=== PATIENT | female | born 1945 | race Caucasian/White ===

== ENCOUNTER 2025-02-04 09:28 | Day surgery (SDC) | payer MEDICARE, OTHER, SELFPAY ==
--- OUTSIDE RECORDS SUMMARY | 2025-01-29 13:08 | XMS_ITS | Clinical Summary ---
Author Organization [address] [facility] Building Address [address] [facility] [place], [place] [address] Phone Care Team Providers Care Carrot Tier Name Role Phone Lynette Duff MD Primary Care Provider [phone] Allergies Active Allergy Reactions Criticality Noted Date Comments Cephalexin Medium 03/27/2019 Other Reaction(s): Myalgia and Joint Pain Severe Leg pain Ciprofloxacin 02/22/2019 Experienced chest pain, also worried because she has aortic dilatation and increased risk of aneurysm rupture on flouroquinolone Droperidol Hives 04/28/2005 Flu Virus Vaccine Tv 2015-16 (18 Yr And Up),Recomb Anaphylaxis,Whe[place] ing High 11/25/2022 Pt is allergic to ANY FLU VACCINE . Furosemide 06/30/2018 Per pt was told when in hospital That she should not take lasix because it dries out her kidneys Hydralazine Other 08/07/2024 Ibuprofen Swelling 08/19/2014 Loratadine 07/11/2019 Caused increased heart rate Naproxen Hives 04/28/2005 Penicillin G Benzathine Hives 04/28/2005 Shellfish Derived Swelling 03/21/2007 Shrimp 10/26/2018 Pt was in ER Sulfacetamide Sodium Hives 04/28/2005 Tramadol Hcl Hives 04/28/2005 Medications calcium carbonate-vitamin D 600 mg-10 mcg (400 unit) per tablet Take 1 tablet by mouth 3 times daily. Active cetirizine (ZyrTEC) 10 mg tablet Take 1 tablet (10 mg total) by mouth 1 (one) time each day. 3 Active EpiPen 2-Flip 0.3 mg/0.3 mL injection Inject 0.3 mL (0.3 mg total) into the thigh if needed for anaphylaxis. 4 Active melatonin 5 mg capsule Take by mouth. prn Active meclizine (ANTIVERT) 25 mg tablet Take 25 mg by mouth 3 times daily. Active medical supply, miscellaneous (MISCELLANEOUS MEDICAL SUPPLY [facility]) CPAP Inhale into the lungs. Active ketotifen (ZADITOR) 0.025 % ophthalmic solution 1 Drop 3 times daily. Active fluticasone-salme terol (Wixela Inhub) 250-50 mcg/dose diskus inhaler Inhale 1 puff by mouth 2 (two) times a day. 3 each 3 5 05/18/19 26 Active albuterol HFA (PROAIR HFA ; PROVENTIL HFA ; VENTOLIN HFA) 90 mcg/actuation inhaler Inhale 2 puffs by mouth every 4 (four) hours if needed for wheezing. 6.7 g 5 Active famotidine (PEPCID) 20 mg tablet Take 1 tablet (20 mg total) by mouth 2 (two) times a day. 180 tablet 1 5 Active KLOR-CON 20 mEq CR tablet TAKE 1 TABLET DAILY 90 tablet 1 5 Active DILT-XR 240 mg 24 hr capsule TAKE 1 CAPSULE DAILY 90 capsule 1 5 Active gabapentin (NEURONTIN) 100 mg capsule Take 1 capsule (100 mg total) by mouth 3 (three) times a day. 270 capsule 5 Active olmesartan (BENICAR) 40 mg tablet Take 1 tablet (40 mg total) by mouth 1 (one) time each day. 90 each 5 Active oxyCODONE-acetami nophen (PERCOCET) 5-325 mg per tablet Take 1 tablet by mouth 1 (one) time each day if needed for severe pain for up to 28 days. Max Daily Amount: 1 tablet 28 tablet 5 02/09/20 25 Active tirzepatide, weight loss, (Zepbound) 7.5 mg/0.5 mL injectionIndicati ons:Class 3 severe obesity due to excess calories with serious comorbidity and body mass index (BMI) of 40.0 to 44.9 in adult ([facility] V24, [facility] V28) Inject 0.5 mL (7.5 mg total) under the skin every 7 (seven) days. 2 mL 2 5 04/14/19 26 Active levothyroxine (SYNTHROID, LEVOTHROID) 100 mcg tablet Take 1 tab daily From Tuesday to Tuesday, 1.5 tabs on Tuesday But on Sundays take 2 tabs 108 tablet 1 5 Active sertraline (ZOLOFT) 50 mg tablet Take 1 tablet (50 mg total) by mouth 1 (one) time each day. 90 tablet 1 5 Active fluticasone propionate (FLONASE) 50 mcg/actuation nasal spray SPRAY 2 SPRAYS BY NASAL ROUTE DAILY. 16 g 3 5 Active fluticasone propionate (FLONASE) 50 mcg/actuation nasal spray SPRAY 2 SPRAYS BY NASAL ROUTE DAILY. 01/25/20 25 Discontin ued(Reord er) sertraline (ZOLOFT) 50 mg tablet Take 1 tablet (50 mg total) by mouth 1 (one) time each day. 90 tablet 1 5 01/25/20 25 Discontin ued(Reord er) levothyroxine (SYNTHROID, LEVOTHROID) 100 mcg tablet Take 1 tab daily From Tuesday to Tuesday, 1.5 tabs on Tuesday But on Sundays take 2 tabs 108 tablet 1 5 01/17/20 25 Discontin ued(Reord er) tirzepatide, weight loss, (Zepbound) 7.5 mg/0.5 mL injection Inject 0.5 mL (7.5 mg total) under the skin every 7 (seven) days. 2 mL 5 01/15/20 25 Discontin ued(Reord er) oxyCODONE-acetami nophen (PERCOCET) 5-325 mg per tablet Take 1 tablet by mouth 1 (one) time each day if needed for severe pain for up to 28 days. Max Daily Amount: 1 tablet 28 tablet 5 01/11/20 25 Discontin ued(Reord er) Active Problems Problem Noted Date Diagnosed Date Hypokalemia 08/18/2024 Hyponatremia 08/17/2024 Assessment & Plan (09/03/2024 11:27 AM EDT): We will recheck her electrolyte levels. Orders: Basic metabolic panel; Future Anxiety 11/05/2020 Ascending aorta dilatation ([facility] V24) 021 Assessment & Plan (06/22/2024 6:50 PM EDT): Up-to-date with echocardiogram. Will continue surveillance echocardiogram yearly. Assessment & Plan (02/18/2024 9:30 AM EST): She is up-to-date with her echocardiogram. Ascending aortic dilatation stable. PLMD (periodic limb movement disorder) 9 Obstructive sleep apnea 07/24/2018 Overview (01/16/2024): [facility] Polysomnogram: Date 07/23/2018; Wt 255#; BMI 47; SE 42%; SM 50%; REM 25%; RDI 56 (AHI 52), REM (RDI 58 - AHI 58), Central apneas 0; Obstructive apneas 32; Mixed apneas 0; hypopneas 107; RERAs 13; average oxygen saturation 91% (lowest 70% - with saturations <88% for 5% or more of study); PLMs 230. - Obstructive Sleep Apnea - Severe; mostly hypopneas with obstructive apneas; with sleep related hypoventilation and PLMD by 2019 polysomnogram. - 07/23/2018 Prestudy ESS 4; 1/ RLS symptoms. CKD (chronic kidney disease) stage 3, GFR 30-59 ml/min ([facility] V24, [facility] V28) 10/07/2017 Assessment & Plan (06/22/2024 6:50 PM EDT): Avoid NSAIDs. She has an upcoming appointment with nephrology. Assessment & Plan (02/18/2024 9:30 AM EST): COPD (chronic obstructive pu lmonary disease) ([facility] V24, [facility] V28) 10/07/2017 Assessment & Plan (02/18/2024 9:30 AM EST): Advised avoid NSAIDs. Gently increase water intake. SVT (supraventricular tachycardia) ([facility] V24) 10/07/2017 Overview (01/16/2024): 01/18/19: continue on diltiazem. Needs JENA controlled. F/u 6 months. 03/05/19: received updated holter - no changes. Cardiology (11/03/17): Patient was recently hospitalized for pneumonia. Her telemetry monitoring showed SVT during the time. It resolved with low-dose diltiazem. 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 Do not think she has primary hypertension. Does not need diuretic at this time. Posterior subcapsular age-related cataract, left eye 03/16/2017 Knee osteoarthritis 08/22/2013 Lumbosacral spondylosis without myelopathy 08/22 Migraine, unspecified, witho ut mention of intractable migraine without mention of status migrainosus 08/10/2012 Overview (01/16/2024): Neuro(01/12/17): stop topiramate, limit caffiene, avoid daily painkillers and avoid triggers Lumbar spinal stenosis 11/17/2011 Overview (01/16/2024): Neurosurg(12/09/16): seen by Dr Marty Stockton, discussed treamtent options. Patient wants to this think about her options. [facility] 11/16 Assessment & Plan (06/22/2024 6:50 PM EDT): I adjusted her gabapentin dose to 100 mg in the morning and at bedtime and 200 mg in the afternoon. Morbid obesity with BMI of 5 0.0-59.9, adult ([facility] V24, [facility] V28) 01/14/2011 Asteroid hyalosis 08/25/2009 Nuclear sclerosis 08/25/2009 BPPV (benign paroxysmal positional vertigo) 09/04 Ocular hypertension 08/26/2008 Hypersomnia with sleep apnea 03/15/2006 Overview (01/16/2024): Much improved with weight loss IMO update Hypertension 07/29/2005 Assessment & Plan (09/03/2024 11:27 AM EDT): Blood pressure elevated but there could be a component of whitecoat hypertension. Advised her to keep a blood pressure log twice a day and she will call me let me know in 1 week's time. If truly elevated, I will consider adding spironolactone but Will need to discontinue her potassium supplement if she is started on spironolactone. She will continue her regimen of diltiazem and olmesartan for now. Assessment & Plan (06/22/2024 6:50 PM EDT): Blood pressure still elevated. I will start her on hydralazine 25 mg twice a day. Continue her current regimen of diltiazem and losartan. Follow-up in 4 weeks for blood pressure recheck. Orders: Basic metabolic panel; Future Assessment & Plan (02/18/2024 9:30 AM EST): Blood pressure is elevated today. However, patient states that blood pressure is much better controlled when she takes her diltiazem at night and losartan during the day. Will switch her regimen to diltiazem at night and losartan during the day. She will follow low-sodium diet. She will keep a blood pressure log. Follow-up in 1 week's time for blood pressure follow-up. Hypothyroidism 07/29/2005 Assessment & Plan (06/22/2024 6:50 PM EDT): Continue current raynaud levothyroxine. Assessment & Plan (02/18/2024 9:30 AM EST): Continue current regimen of levothyroxine. Encounters Date Type Department Care Team Description 01/15/2025 3:20 PM EST Lab Draw Station - [address] Hyponatremia; Abdominal pain, unspecified abdominal location; Hypothyroidism, unspecified type 01/15/2025 2:30 PM EST Office Visit Internal Medicine - [address] [phone] Lynette Duff MD Hypertension, unspecified type (Primary Dx); Chronic obstructive pulmonary disease, unspecified COPD type ([facility] V24, [facility] V28); Class 3 severe obesity due to excess calories with serious comorbidity and body mass index (BMI) of 45.0 to 49.9 in adult ([facility] V24, [facility] V28); Ascending aorta dilatation ([facility] V24); Stage 3 chronic kidney disease, unspecified whether stage 3a or 3b CKD ([facility] V24, [facility] V28); Hypothyroidism, unspecified type; Hyponatremia; Obstructive sleep apnea; Ocular hypertension, unspecified laterality; Anxiety 01/15/2025 Results Follow-Up Internal Medicine - [address] [phone] Lynette Duff MD 01/14/2025 Telephone Bariatric Surgery [facility] [address] [phone] Konstantin Bojorquez MD 01/09/2025 Telephone Internal Medicine - [address] [phone] Lynette Duff MD 12/18/2024 Billing Patient Not Present Internal Medicine - [address] [phone] Kelsi Weaver NP Unilateral primary osteoarthritis, left knee (Primary Dx); Spinal stenosis, lumbosacral region; Difficulty in walking, not elsewhere classified 12/13/2024 Telephone Bariatric Surgery [facility] [address] [phone] Konstantin Bojorquez MD 12/12/2024 4:55 PM EDT - 12/12/2024 11:59 PM EDT Hospital Encounter Radiology Department - [address] [phone] Encounter for screening mammogram for malignant neoplasm of breast Discharge Disposition: Home or Self Care 12/10/2024 Telephone Internal Medicine - [facility] [address] [place] [phone] Lynette Duff MD 11/14/2024 Telephone Bariatric Surgery - [place] [address] [phone] Konstantin Bojorquez MD 11/01/2024 Telephone Bariatric Surgery - [place] [address] [phone] Konstantin Bojorquez MD 10/30/2024 [facility] [place] [phone] Denzel Tena MD from Last 3 Months Immunizations Immunization Administration Dates Next Due Influenza trivalent, 0.5mL ( Fluad) 65yo and older 11/25/2022,03/17/2022,12/19/2020,12/03,12/13/2018,12/07/2017 Influenza trivalent, 0.5mL, preservative free (Fluarix; FluLaval; Fluzone) ages 6mo and older (Afluria) 3 years and older 01/03/2013,01/26/2008,01/17/2007,12/17 Moderna SARS-CoV-2 COVID-19, mRNA, LNP-S, preservative free 08/06/2021,05/27/2020 Pneumococcal conjugate 13 va lent (Prevnar 13, PCV13) 2mo and older 12/19/2014 Pneumococcal polysaccharide 23 valent (Pneumovax 23) 2yo and older 06/25/2016,12/05/2009 Td Tetanus diptheria (Tdvax) 7yo and older 10/28/2017 Tdap Tetanus diptheria acell ular pertussis (Boostrix; Adacel) 7yo and older 03/21/2007 Zoster Live 08/09/2011 Surgical History Surgery Date Site/Laterality Comments HYSTERECTOMY 1971 PROCEDURE: HISTORICAL HYSTERECTOMY; COMMENT: IRASEMA/BSO; Endometriosis CHOLECYSTECTOMY PROCEDURE: HISTORICAL CHOLECYSTECTOMY OTHER SURGICAL HISTORY PROCEDURE: UT CV STRS TST XERS&/OR RX CONT ECG W/SI&R; COMMENT: neg OTHER SURGICAL HISTORY 2004 PROCEDURE: UT ECHO TRANSTHORAC R-T 2D W/WO M-MODE REC COMP; COMMENT: [place] dys COLONOSCOPY 09/12/14 PROCEDURE: HISTORICAL COLONOSCOPY; COMMENT: diverticulosis, polyp x 1 BREAST BIOPSY 2009ish Left PROCEDURE: BX BREAST; PERC NEEDLE CORE W/IMAG GUID; COMMENT: left negative CHOLECYSTECTOMY PROCEDURE: UT LAPAROSCOPY SURG CHOLECYSTECTOMY Medical History Medical History Date Comments Headache(784.0) 07/29/2005 DX:Headache(784. 0) Unspecified asthma(493.90) 07/29/2005 DX:Un specified asthma(493.90) Heart disease, unspecified DX:He art disease, unspecified Unspecified essential hypertension DX:Unspecified essential hypertension Unspecified hypothyroidism 07/29/2005 DX:Un specified hypothyroidism Macular degeneration (senile ) of retina, unspecified DX:Macular degeneration (sen ile) of retina, unspecified; COMMENT: per Dr. He Obesity 01/14/2011 DX:Obesity Lumbar spinal stenosis 11/17/2011 DX:Lumbar spinal stenosis CKD (chronic kidney disease) 10/07/2017 DX: CKD (chronic kidney disease) SVT (supraventricular tachyc ardia) ([facility] V24) 10/07/2017 DX:SVT (supraventricular tac hycardia) ([facility]) COPD (chronic obstructive pu lmonary disease) ([facility] V24, [facility] V28) 10/07/2017 DX:COPD (chronic o bstructive pulmonary disease) ([facility]) Ascending aorta dilatation ( [facility] V24) 11/05/2020 DX:Ascending aorta dilatatio n ([facility]) Glaucoma Family History Medical History Relation Name Comments Coronary artery disease Brother 1 ray Diabetes Brother 1 ray Hypertension Brother 1 ray Asthma Brother 2 roxann Hypertension Brother 2 roxann Stomach cancer Brother 2 roxann Asthma Brother 3 Andre Diabetes Brother 3 Andre Hypertension Brother 3 Andre Other: Other Brother 3 Andre excema, bilater al foot amputation No Known Problems Daughter Asthma Father Heart attack Father Blindness Mother Cataracts Mother Diabetes Mother Glaucoma Mother Hypertension Mother Macular degeneration Mother Other: Other Mother enlarged heart Thyroid disease [address] Sister 2 keya Other: opther Sister 2 keay psoriasis Heart failure Sister 3 adilia Hypertension Sister 3 adilia Mental illness Sister 3 adilia Asthma Sister 4 Nisreen Asthma Sister 5 wilmar Ovarian cancer Sister 5 wilmar Asthma Sister 6 Elizabeth Hypertension Sister 6 Elizabeth No Known Problems Son Breast cancer Neg Hx Colon cancer Neg Hx Strabismus Neg Hx Relation Name Status Comments Brother 1 ray Brother 2 roxann Brother 3 Andre Daughter adopted charly r Father Mother Sister [address] Alive Sister 2 keya Alive Sister 3 adilia Alive Sister 4 [place] Alive Sister 5 wilmar Alive Sister 6 Elizabeth Alive Son adopted son Social History Tobacco Use Types Packs/Day Years Used Date Smoking Tobacco: Former Cigarettes 1 Q uit: 03/07/1999 Smokeless Tobacco: Never Tobacco Cessation:Counseling Given: Not Answered Alcohol Use Standard Drinks/Week Comments No 0 (1 standard drink = 0.6 oz pur e alcohol) Housing Instability Answer Date Recorde d Are you worried that in the next 2 months you may not have stable housing? No 08/20/2024 Food Access & Nutrition Answer Date Rec orded Do you have access to a vari ety of food including fruits and vegetables? Yes 08/18/2024 Access to Healthcare Answer Date Record ed Within the last 3 months, ho w many times did you visit the emergency department for your medical care? 2 08/18/2024 Health Literacy Answer Date Recorded How often do you need to hav e someone help you when you read instructions, pamphlets, or other written material from your doctor or pharmacy? Never 08/18/2024 Caregiver: How often do you need to have someone help you when you read instructions, pamphlets, or other written material from your doctor or pharmacy? Not on file 08/18/2024 Financial Risk Answer Date Recorded How hard is it for you to pa y for the very basics like food, housing, medical care, and air conditioning / heating? Somewhat hard 08/20/2024 Transportation Answer Date Recorded Has the lack of transportati on kept you from meetings, work, or from getting things needed for daily living? No Has the lack of transportati on kept you from medical appointments or from getting medications? No 08/20/2024 Social Isolation Answer Date Recorded How often do you feel lonely or isolated from th ose around you? Never 08/18/2024 Food Risk Answer Date Recorded Within the past 12 months we worried whether our food would run out before we got money to buy more. Never true 08/20/2024 Within the past 12 months th e food we bought just didn't last and we didn't have money to get more. Never true 08/20/2024 Dependent Care Answer Date Recorded Do you need help finding or paying for care for your loved ones. For example, childcare aide or elderly care for an older adult? No 08/18/2024 Education Answer Date Recorded Do you think completing more education or training, like finishing a GED, going to college, or learning a trade, would be helpful for you? No 08/18/2024 Employment and Income Answer Date Recor ded During the last four weeks, have you been actively looking for work? No 08/18/2024 Living Situation Answer Date Recorded What is your living situation? Unrecognized valu e 08/20/2024 Interpersonal Safety Answer Date Record ed Physical Abuse Unrecognized value 08/18/2024 Verbal Abuse Unrecognized value 08/18/2024 Comments No Sex and Gender Information Value Date Recorded Sex Assigned at Not on file Legal Sex Female 5:54 AM EST Gender Identity Not on file Sexual Orientation Not on file Obstetrics History Para Term AB IAB SAB Ectopic Multiple Livin g Live Births 0 0 0 Last Filed Vital Signs Vital Sign Reading Time Taken Comments Blood Pressure 136/82 01/15/2025 2:32 PM EST Pulse 74 01/15/2025 2:32 PM EST Temperature 36.2 C (97.1 F) 2024 10:58 AM EDT Respiratory Rate 18 08/23/2024 9:36 AM EDT Oxygen Saturation 97% 08/23/2024 9:36 AM EDT Inhaled Oxygen Concentration - - Weight 108 kg (238 lb 12.8 oz) 01/15/2025 2:32 P M EST Height 165.1 cm (5' 5 ) 01/15/2025 2:32 PM EST Body Mass Index 39.74 01/15/2025 2:32 PM EST Plan of Treatment Upcoming Encounters Date Type Department Care Team (Late st Contact Info) Description 04/04/2025 1:30 PM EST Office Visit Bariatric Surgery - [place] [facility] [address] [place] [phone] Konstantin Bojorquez MD [address] [place] [phone] 04/18/2025 3:45 PM EST Office Visit Internal Medicine - [address] [phone] Kelsi Weaver, JESSY [address] [place], [place] [phone] 05/07/2025 4:00 PM EST Office Visit Nephrology - [address] [phone] Rob Nieves MD [address] [facility] [address] [place] [phone] 05/17/2025 3:45 PM EDT Office Visit Pulmonology - [place] [facility] [address] [place] [phone] Sofia Clemente MD [address] [place] [phone] Health Maintenance Due Date Last Done Comments Zoster Vaccines (1 of 2) 10/04/2011 08/09/2011 RSV Immunization Adult Patients (1 - 1-dose 75+ series) 2020 Osteoporosis Screening (Bone Density Screening) 02/13/2022 COVID-19 Vaccine ( season) 2024 08/06/2021, 05/27/2020, 04/29/2020 Influenza Vaccine (#1) 2024 , 03/17/2022, 12/19/2020, Additional history exists Medicare Annual Wellness Visit 02/16/2025 02/17/2024 Falls Risk Assessment 08/18/2025 08/18/2024 Social Influencers of Health Screening 08/20/2025 08/20/2024 Hypertension/CHF/CAD Annual BMP Blood Test 09/25/2025 09/25/2024, 09/03/2024, 08/23/2024, Additional history exists DTaP,Tdap,and Td Vaccines (3 - Td or Tdap) 10/29/2027 10/28/2017, 03/21/2007 Cholesterol Screening (Lipid Panel) 10/04/2028 10/05/2023, 10/05/2023 Hepatitis C Screening Completed 07/14/1998 Pneumococcal Vaccine: 50+ Years Completed 06/25/2016, 12/19/2014, 12/05/2009 Depression Screening Completed 01/14/2025 HIB Vaccines Aged Out No longer eligi ble based on patient's age to complete this topic HPV Vaccines Aged Out No longer eligi ble based on patient's age to complete this topic Hepatitis A Vaccines Aged Out No long er eligible based on patient's age to complete this topic Hepatitis B Vaccines Aged Out No long er eligible based on patient's age to complete this topic IPV Vaccines Aged Out No longer eligi ble based on patient's age to complete this topic MMR Vaccines Aged Out No longer eligi ble based on patient's age to complete this topic Meningococcal ACWY Vaccine Aged Out N o longer eligible based on patient's age to complete this topic Meningococcal B Vaccine Aged Out No l onger eligible based on patient's age to complete this topic RSV Immunization Patients Under 20 months Aged Out No longer eligible based on patient's age to complete this topic Varicella Vaccines Aged Out No longer eligible based on patient's age to complete this topic Procedures Procedure Name Priority Date/Time Associated Diagnosis Comments THYROID STIMULATING HORMONE WITH REFLEX TO FREE T4 AND FREE T3 Routine 01/15/2025 3:24 PM EST Hypothyroidism, unspecified type LIPASE Routine 01/15/2025 3:24 PM EST Abdominal pain, unspecified abdominal location MAGNESIUM Routine 01/15/2025 3:24 PM EST Hyponatremia MG MAMMO DIGITAL SCREENING W CANDELARIO BILAT Routine 12/12/2024 5:14 PM EDT Encounter for screening mammogram for malignant neoplasm of breast BASIC METABOLIC PANEL Routine 09/25/2024 12:49 PM EDT HAM (acute kidney injury) (CMS/HCC V24) LIPID PANEL Routine 10/05/2023 HEPATITIS C SCREENING Routine 07/14/1998 from Last 3 Months or Most Recently Relevant to Health Maintenance Results * Thyroid stimulating hormone with reflex to free t4 and free t3 (01/15/2025 3:24 PM EST) TSH 3.86 0.40 - 4.00 mcIU/mL LAB CHEMISTRY METHOD 01/15/2025 7:06 PM EST [facility] Blood Venous blood specimen / Unknown Venipuncture / Unknown 01/15/2025 3:24 PM EST 01/15/2025 3:24 PM EST us Lynette Duff MD LAB BLOOD ORDERABLES Final Res ult Performing Organization Address City/[facility]/ZIP Co de Phone Number [facility] [address] [place] [address], [place] [phone] * Magnesium (01/15/2025 3:24 PM EST) Pathologist [facility] Magnesium 2.0 1.9 - 2.6 mg/dL LAB CHEMISTRY METHOD 01/15/2025 6:36 PM EST [facility] Blood Venous blood specimen / Unknown Venipuncture / Unknown 01/15/2025 3:24 PM EST 01/15/2025 3:24 PM EST us Lynette Duff MD LAB BLOOD ORDERABLES Final Res ult [facility] [address] [place] [address], [place] [phone] * Lipase (01/15/2025 3:24 PM EST) Lipase 29 13 - 75 unit/L LAB CHEMISTRY METHOD 01/15/2025 6:36 PM EST [facility] Blood Venous blood specimen / Unknown Venipuncture / Unknown 01/15/2025 3:24 PM EST 01/15/2025 3:24 PM EST us Konstantin Bojorquez MD LAB BLOOD ORDERABLES Final R esult [facility] [address] [place] [address], [place] [phone] * MG Mammo Digital Screening w Candelario bilat (12/12/2024 5:14 PM EDT) Anatomical Region Laterality Modality Breast Bilateral Mammography 12/13/2024 5:53 PM EDT Impressions 12/13/2024 5:55 PM EDT No mammographic evidence of malignancy. BREAST DENSITY: B - There are scattered areas of fibroglandular density. BI-RADS CATEGORY: 1 - NEGATIVE RECOMMENDATION: Screening bilateral mammogram is recommended in 1 year. MAMMO LOCATION: [facility], [address] [place] [address], [id number], . -------- FINAL REPORT -------- Dictated By: Tanya Nicolas Dictated Date: 12/13/2024 17:53 ET Assigned Physician: Tanya Nicolas Reviewed and Electronically Signed By: Tanya Nicolas Signed Date: 12/13/2024 17:55 ET Workstation ID: [id number] Transcribed By: Self Edit Transcribed Date: 12/13/2024 17:53 ET Narrative 12/13/2024 5:55 PM EDT EXAM: Screening Mammogram CLINICAL: 79 years old, Female, routine annual exam. History of a benign left core biopsy in 2011. COMPARISON: 02/15/2023 and 07/10/2020 TECHNIQUE: Bilateral MLO and CC views were obtained digitally with 3-D mammogram (digital breast tomosynthesis). Computer- aided detection was utilized in evaluation of this exam (CAD). FINDINGS: No new suspicious mass, architectural distortion, or suspicious calcifications. Biopsy clip again noted in the upper outer left breast. Procedure Note Tanya Nicolas MD - 12/13/2024 EXAM: Screening Mammogram CLINICAL: 79 years old, Female, routine annual exam. History of a benignleft core biopsy in 2012. COMPARISON: 02/15/2023 and 07/10/2020 TECHNIQUE: Bilateral MLO and CCviews were obtained digitally with 3-D mammogram (digital breasttomosynthesis). Computer- aided detection was utilized in evaluation ofthis exam (CAD). FINDINGS: No new suspicious mass, architectural distortion, or suspiciouscalcifications. Biopsy clip again noted in the upper outer left breast. IMPRESSION: No mammographic evidence of malignancy. BREAST DENSITY: B - There are scattered areas of fibroglandular density. BI-RADS CATEGORY: 1 - NEGATIVE RECOMMENDATION: Screening bilateral mammogram is recommended in 1 year. MAMMO LOCATION: [facility], [address] [place] [address], [id number], . -------- FINAL REPORT -------- Dictated By: Tanya Nicolas Dictated Date: 12/13/2024 17:53 ET Assigned Physician: Tanya Nicolas Reviewed and Electronically Signed By: Tanya Nicolas Signed Date: 12/13/2024 17:55 ET Workstation ID: [id number] Transcribed By: Self Edit Transcribed Date: 12/13/2024 17:53 ET us Denzel Tena MD IMG BI PROCEDURES Final R esult * (ABNORMAL) Basic metabolic panel (09/25/2024 12:49 PM EDT) Sodium 132(L) 133 - 145 mmol/L LAB CHEMISTRY METHOD 09/25/2024 5:20 PM EDT [facility] Potassium 4.7 3.5 - 5.5 mmol/L LAB CHEMISTRY METHOD 09/25/2024 5:20 PM EDT [facility] Chloride 97 96 - 110 mmol/L LAB CHEMISTRY METHOD 09/25/2024 5:20 PM [facility] CO2 29 21 - 32 mmol/L LAB CHEMISTRY METHOD 09/25/2024 5:20 PM [facility] Anion Gap 6 3 - 11 LAB CHEMISTRY METHOD 09/25/2024 5:20 PM [facility] Glucose 78 70 - 100 mg/dL LAB CHEMISTRY METHOD 09/25/2024 5:20 PM [facility] BUN 18 5 - 25 mg/dL LAB CHEMISTRY METHOD 09/25/2024 5:20 PM [facility] Creatinine 1.36(H) 0.50 - 1.10 mg/dL LAB CHEMISTRY METHOD 09/25/2024 5:20 PM [facility] eGFR 40(L) >=60 mL/min/1. 73m2 LAB CHEMISTRY METHOD 09/25/2024 5:20 PM [facility] Comment:Calculation based on the Chronic Kidney Disease Epidemiology Collaboration (CKD-EPI) equation refit without adjustment for race. BUN/Creatinine Ratio 13.2 LAB CHEMISTRY METHOD 09/25/2024 5:20 PM [facility] Calcium 9.0 8.5 - 10.5 mg/dL LAB CHEMISTRY METHOD 09/25/2024 5:20 PM [facility] Blood Venous blood specimen / Unknown Venipuncture / Unknown 09/25/2024 12:49 PM EDT 09/25/2024 12:49 PM EDT us Denzel Tena MD LAB BLOOD ORDERABLES Imani daniesl Result [facility] [address] [place] [address], * Lipid panel (10/05/2023) LDL/HDL Ratio 2 0 - 4 Triglycerides 109 0 - 150 mg/dL Cholesterol 198 0 - 200 mg/dL HDL 82 >=40 mg/dL LDL Cholesterol 95 0 - 100 mg/dL Blood Venous blood specimen / Unknown Historical Provider LAB BLOOD ORDERABLES Imani l Result * Hepatitis C Screening (07/14/1998) Hepatitis C Screening Abstracted Historical Provider HEALTH MAINTENANCE Final Result from Last 3 Months or Most Recently Relevant to Health Maintenance [place] Advance Directives Documents on File Type Date Recorded Patient Labor Delivery Specialist Expl anation Health Care Decision (hx) 09/15/2017 AD VILLALOBOS DIRECTIVE Health Care Decision (hx) 09/15/2017 AD VILLALOBOS DIRECTIVE Health Care Decision (hx) 09/15/2017 AD VILLALOBOS DIRECTIVE Health Care Decision (hx) 09/15/2017 AD VILLALOBOS DIRECTIVE Health Care Decision (hx) 09/15/2017 AD VILLALOBOS DIRECTIVE Health Care Decision (hx) 09/15/2017 AD VILLALOBOS DIRECTIVE Health Care Decision (hx) 09/15/2017 AD VILLALOBOS DIRECTIVE Health Care Decision (hx) 09/15/2017 AD VILLALOBOS DIRECTIVE Health Care Decision (hx) 09/15/2017 AD VILLALOBOS DIRECTIVE Health Care Decision (hx) 09/15/2017 AD VILLALOBOS DIRECTIVE Health Care Decision (hx) 09/15/2017 AD VILLALOBOS DIRECTIVE * Full Code - Default (Latest Code Status on File) Date Activated Date Inactivated Comments 08/17/2024 11:29 PM 08/18/2024 4:04 PM This is ord er is used when code status has not been discussed with the patient, or code status is otherwise unknown/unconfirmed To update the patient's code status, place a code status order. Do not modify or discontinue any currently active code status orders. Care Teams Carrot Tier Relationship Specialty Start Date End Date Lynette Duff MD [address] [place] [phone] PCP - General Internal Medicine 12/04/24
--- OUTSIDE RECORDS SUMMARY | 2025-01-29 13:08 | XMS_ITS | Encounter Summary ---
Author Organization [facility] Address [address] [place] [address] Care Team Providers Care Want Ad Receiver Name Role Phone Lynette Duff MD Primary Care Provider [phone] Reason for Visit * Reason Onset Date Comments Request For Order(s) 01/09/2025 [facility] caremar k Encounter Details Date Type Department Care Team (Late st Contact Info) Description 01/09/2025 Telephone Internal Medicine - [facility] [address] [place] [phone] Lynette Duff MD [address] [place], [place] Social History Tobacco Use Types Packs/Day Years Used Date Smoking Tobacco: Former Cigarettes 1 Q uit: 03/07/1999 Smokeless Tobacco: Never Alcohol Use Standard Drinks/Week Comments No 0 [...] Record ed Within the last 3 months, radha vaughan many times did you visit the emergency [...] care for your loved ones. For example, child adolescent psychiatrist or elderly care for an older adult? [...] on file Sexual Orientation Not on file documented as of this encounter Functional Status * Are you deaf or do you have serious difficulty hearing? Answer Date of Assessment Author No 08/23/2024 12:31 AM EDT Melanie Dill RN * Are you blind or do you have serious difficulty seeing, even when wearing glasses? Answer Date of Assessment Author No 08/23/2024 12:31 AM EDT Melanie Dill RN * Do you have serious difficulty walking or climbing stairs? Answer Date of Assessment Author No 08/23/2024 12:31 AM EDT Melanie Dill RN * Do you have serious difficulty dressing or bathing? Answer Date of Assessment Author No 08/23/2024 12:31 AM EDT Melanie Dill RN * Because of a physical, mental, or emotional condition, do you have serious difficulty doing errandsalone such as visiting the doctor? Answer Date of Assessment Author No 08/23/2024 12:31 AM EDMelanie Jo RN documented as of this encounter Mental Status * Because of a physical, mental, or emotional condition, do you have serious difficulty concentrating, remembering, or making decisions? (5 years old or older) Answer Entry Date Author No 08/23/2024 12:31 AM EDMelanie Jo RN documented in this encounter Progress Notes * Mary Beth Menendez - 01/09/2025 12:45 PM EST faxed order from [facility] Placed in nurse's bin documented in this encounter Plan of Treatment Upcoming Encounters Date Type Department Care Team (Late st Contact Info) Description 04/04/2025 1:30 PM EST Office Visit Bariatric Surgery - [place] [address] [place] [phone] Konstantin Bojorquez MD [address] [place] [phone] 04/18/2025 3:45 PM EST Office Visit Internal Medicine - [address] [phone] Kelsi Weaver NP [address] [place] [phone] 05/07/2025 4:00 PM EST Office Visit Nephrology - [facility] [address] [place], [place] [phone] Rob Nieves MD [address] [place] [address] 05/17/2025 3:45 PM EDT Office Visit Pulmonology - [place] [address] [place] [phone] Sofia Clemente MD [address] [place] [phone] documented as of this encounter Visit Diagnoses Not on filedocumented in this encounter Additional Health Concerns Assessment Noted Time PHQ-9 Depression Total Score: 1 06/16/19 25 9:24 PM EDT documented as of this encounter Care Teams Want Ad Receiver Relationship Specialty Start Date End Date Lynette Duff MD [address] [place] [address] PCP - General Internal Medicine 12/04/24 documented as of this encounter
--- OUTSIDE RECORDS SUMMARY | 2025-01-29 13:08 | XMS_ITS | Patient Health Record ---
Author Organization [facility] [employer] [facility] onal Services [facility] Address [address] [place] [phone] Care Team Providers Care Manager Library Name Role Phone VEDA LUGO Unavailable [phone] Denzel Tena Unavailable Unavailable Reason For Referral No Information Problems Problem Type SNOMED Code ICD Code Onset Dates Problem Status W/U Status Risk Notes Problem Chronic kidney disease stage 3A (disorder) (611999895) Chronic kidney disease, stage 3a (N18.31) Active confirmed Encounters Encounter Location Date Provider Diagnosis [facility] [employer] [facility] [address] [place] [phone] 02/14/2024 VEDA LUGO [employer] [facility] [address] [place] [phone] 07/11/2024 VEDA LUGO [employer] [facility] [address] [place] [phone] 10/24/2024 VEDA PARISH [employer] [facility] [address] [place] [phone] 12/31/2024 VEDA LUGO Plan Of Treatment No Information Insurance Providers Payer Name Payer Address Payer Phone Subscriber Number Group Number Insured Name Patient Relationship to Insured Coverage Start Date Coverage End Date [facility] Medicare Advantage [id number] [place] [address] [id number] CHILO LEIVA Self - patient is the insured
--- OUTSIDE RECORDS SUMMARY | 2025-01-29 13:08 | XMS_ITS ---
Author Name [facility] Organization Unknown Care Team Organization Name Specialty Phone Email Start Date End Da te [facility] Denzel Tena Primary Care 01/12/2022 10/24/2023
--- NOTE | 2025-01-29 13:18 | HO.ANESPROP2 ---
Documented by User: Maria Teresa Marroquin NP 01/29/25 13:39 HPI - Anesthesia Eval Consult details Narrative: 79 yr old female for bilateral L4 Lumbar Transforaminal MICKIE BMI 39/40 Chronic opioids H/O aortic aneurysm and is scheduled for an echocardiogram in 02/2025, echo from 11/2023 reviewed below. H/O SVT, following Dr. Albert Trevino, ?last visit 11/2023, on diltiazem JENA: using CPAP CKD stage 3, following with renal H/O hyponatremia while on diuretics Anesthesia Pre-Procedure Meds Is the patient on any of the following meds?: GLP1/DPP4 PMFSH Active Problems Active Problems: All Active Problems Lumbar radiculitis (Acute) Spinal stenosis, lumbar region with neurogenic claudication (Acute) Past Medical History Medical History Anemia Depression Sleep apnea COPD (chronic obstructive pulmonary disease) Asthma Hx of kidney disease History of low potassium HTN (hypertension) Lumbar radiculitis Spinal stenosis, lumbar region with neurogenic claudication Surgical History Surgical History Hx of cholecystectomy Hx of hysterectomy Social History Social History Patient Tobacco Use Status: Former Tobacco user Use of substances other than those prescribed or required for medical reasons: No Are you DNR?: No Advance Directives: No Advance Directives Information Provided: Yes Meds Allergies Allergy/AdvReac Type Severity Reaction Status Date / Time influenza virus vaccine tvs Allergy Intermediate Anaphylaxis Verified 01/29/25 13:47 (65 yr and up) (From Fluad (65yr+)(PF)) vaccine adjuvant emulsion Allergy Intermediate Anaphylaxis Verified 01/29/25 13:47 MF59C.1 (From Fluad (65yr+)(PF)) droperidol Allergy Unknown Hives Unverified 01/29/25 13:47 naproxen Allergy Unknown Hives Verified 01/29/25 13:47 penicillin G benzathine Allergy Unknown Hives Verified 01/29/25 13:47 shellfish derived (shellfish) Allergy Unknown Swelling Verified 01/29/25 13:47 sulfacetamide Allergy Unknown Hives Verified 01/29/25 13:47 tramadol Allergy Unknown Hives Verified 01/29/25 13:47 cephalexin (From Keflex) AdvReac Unknown Joint Pain Verified 01/29/25 13:47 ciprofloxacin AdvReac Unknown Chest Pain Unverified 01/29/25 13:47 furosemide AdvReac Unknown Unknown Unverified 01/29/25 13:47 hydralazine AdvReac Unknown Unknown Unverified 01/29/25 13:47 ibuprofen AdvReac Unknown Swelling Verified 01/29/25 13:47 loratadine AdvReac Unknown Unknown Unverified 01/29/25 13:47 Home Medications ?Medication ?Instructions ?Recorded ?Confirmed ?Last Taken ?Type albuterol sulfate 90 mcg/actuation 2 puff inhalation Q4H PRN wheezing 01/30/25 02/04/25 Unknown History aerosol inhaler famotidine 20 mg tablet 20 mg PO BID 01/30/25 02/04/25 Unknown History fluticasone 250 mcg-salmeterol 50 1 inh inhalation BID 01/30/25 02/04/25 Unknown History mcg/dose blistr powdr for inhalation (Wixela Inhub) gabapentin 100 mg capsule 100 mg PO TID 01/30/25 02/04/25 Unknown History levothyroxine 100 mcg tablet 100 mcg PO DAILY 01/30/25 02/04/25 Unknown History melatonin 5 mg PO BEDTIME PRN Insomnia 01/30/25 02/04/25 Unknown History oxycodone-acetaminophen 5 mg-325 1 tab PO DAILY PRN Pain 01/30/25 02/04/25 Unknown History mg tablet potassium 10 meq PO DAILY 01/30/25 02/04/25 Unknown History sertraline 50 mg tablet 50 mg PO DAILY 01/30/25 02/04/25 Unknown History tirzepatide (weight loss) 7.5 7.5 mg subcut QWEEK 01/30/25 02/04/25 Unknown History mg/0.5 mL subcutaneous pen injector (Zepbound) olmesartan 40 mg tablet 40 mg PO DAILY 02/04/25 02/04/25 Unknown History Exam Pertinent Lab Results Pertinent Lab Results: BMP 09/2024 Sodium 132 Potassium 4.7 BUN 18 Creat 1.36 Magnesium 2.1 CBC 08/2024 WBC 8.9 RBC 4 Hgb 10.8 Hct 33.4 platelets 237 Narrative Narrative: ECHO 11/2023 Normal left ventricular size and systolic function. Mild concentric left ventricular hypertrophy. Normal regional wall motoin LVEF 55-60%. Inderterminate diastolic dysfunction. Right ventricle is normal in size and systolic function. Pulmonary artery pressure is not elevated. The atria are normal in size. Ascending aorta 4.0 cm EKG 08/2024 Normal sinus rhythm, rate 75 Left axis deviation Right bundle branch block Minimal voltage criteria for LVH Documented by User: Gómez Gonzales MD 02/04/25 11:04 PMF Past Medical History Medical History Anemia Depression Sleep apnea COPD (chronic obstructive pulmonary disease) Asthma Hx of kidney disease History of low potassium HTN (hypertension) Lumbar radiculitis Spinal stenosis, lumbar region with neurogenic claudication Family History Family history of problems with anesthesia: No Surgical History Surgical History Hx of cholecystectomy Hx of hysterectomy History of Problems with Anesthesia: No Social History Social History Patient Tobacco Use Status: Former Tobacco user Use of substances other than those prescribed or required for medical reasons: No Are you DNR?: No Advance Directives: No Advance Directives Information Provided: Yes Meds Allergies Allergy/AdvReac Type Severity Reaction Status Date / Time influenza virus vaccine tvs Allergy Intermediate Anaphylaxis Verified 01/29/25 13:47 (65 yr and up) (From Fluad (65yr+)(PF)) vaccine adjuvant emulsion Allergy Intermediate Anaphylaxis Verified 01/29/25 13:47 MF59C.1 (From Fluad (65yr+)(PF)) droperidol Allergy Unknown Hives Unverified 01/29/25 13:47 naproxen Allergy Unknown Hives Verified 01/29/25 13:47 penicillin G benzathine Allergy Unknown Hives Verified 01/29/25 13:47 shellfish derived (shellfish) Allergy Unknown Swelling Verified 01/29/25 13:47 sulfacetamide Allergy Unknown Hives Verified 01/29/25 13:47 tramadol Allergy Unknown Hives Verified 01/29/25 13:47 cephalexin (From Keflex) AdvReac Unknown Joint Pain Verified 01/29/25 13:47 ciprofloxacin AdvReac Unknown Chest Pain Unverified 01/29/25 13:47 furosemide AdvReac Unknown Unknown Unverified 01/29/25 13:47 hydralazine AdvReac Unknown Unknown Unverified 01/29/25 13:47 ibuprofen AdvReac Unknown Swelling Verified 01/29/25 13:47 loratadine AdvReac Unknown Unknown Unverified 01/29/25 13:47 Home Medications ?Medication ?Instructions ?Recorded ?Confirmed ?Last Taken ?Type albuterol sulfate 90 mcg/actuation 2 puff inhalation Q4H PRN wheezing 01/30/25 02/04/25 Unknown History aerosol inhaler famotidine 20 mg tablet 20 mg PO BID 01/30/25 02/04/25 Unknown History fluticasone 250 mcg-salmeterol 50 1 inh inhalation BID 01/30/25 02/04/25 Unknown History mcg/dose blistr powdr for inhalation (Wixela Inhub) gabapentin 100 mg capsule 100 mg PO TID 01/30/25 02/04/25 Unknown History levothyroxine 100 mcg tablet 100 mcg PO DAILY 01/30/25 02/04/25 Unknown History melatonin 5 mg PO BEDTIME PRN Insomnia 01/30/25 02/04/25 Unknown History oxycodone-acetaminophen 5 mg-325 1 tab PO DAILY PRN Pain 01/30/25 02/04/25 Unknown History mg tablet potassium 10 meq PO DAILY 01/30/25 02/04/25 Unknown History sertraline 50 mg tablet 50 mg PO DAILY 01/30/25 02/04/25 Unknown History tirzepatide (weight loss) 7.5 7.5 mg subcut QWEEK 01/30/25 02/04/25 Unknown History mg/0.5 mL subcutaneous pen injector (Zepbound) olmesartan 40 mg tablet 40 mg PO DAILY 02/04/25 02/04/25 Unknown History Exam Exam Date and Time: 02/04/25 Airway Mallampati Class: I TM Dist: >3cm Neck ROM: Full Heart: rrr Lungs: ctab vesicular Assessment and Plan Assessment Anesthesia Assessment: Anesthesia Plan Discussed and Chart Reviewed Final Anesthetic Review Family History of Problems with Anesthesia: No History of Problems with Anesthesia: No NPO: Yes ASA Class: III Final Preanesthetic Review: No Changes in Pt Med Stat, Meds/Allgs Chart Reviewed, Consent Obtained/Reviewed and Anes Risks/Benef Reviewed Patient Risk: Low Procedure Risk: Low Anesthetic Plan Anesthetic Plan: MAC: Disposition: Standard PACU
--- NOTE | ~2025-02-04 | FL_ITS ---
EXAMINATION: FL GUIDANCE ONLY HISTORY: Procedural guidance COMPARISON: None available. TECHNIQUE: Fluoroscopy time: 19 seconds. Cumulative Dose: 11.24 mGy. DAP: 4.04 Gycm2 Images: 1. FINDINGS: A single fluoroscopic spot film of the lumbar spine demonstrates needles and contrast material adjacent to the bilateral L4 pedicles. FL/FL guidance in OR IMPRESSION: Fluoroscopy during procedure. Please see procedure report for additional information. Electronically signed by: Mikey Ramos MD 02/05/2025 07:16 AM BILLY
[2025-02-04 10:06] VITALS: BMI 42.4
--- NOTE | 2025-02-04 10:09 | MHC.SHP ---
Pre-Procedural Eval Section A - 24 Hr Update-Section A only Date of Service: 02/04/25 The patient is an INPATIENT: No Section B - Complete if H&P > 30 days Chief Complaint: Radiculopathy, lumbar region Details of Present Illness: Chronic lower back pain with spinal stenosis with neurogenic claudication Relevant Family History (Specify if Yes): No Relevant Social History: None Present Medications: see Short Stay Collaborative assessment Medical History: No relevant PMH History of Previous Operations: No relevant previous surgery Allergies: Allergies Allergy/AdvReac Type Severity Reaction Status Date / Time influenza virus vaccine tvs Allergy Intermediate Anaphylaxis Verified 01/29/25 13:47 (65 yr and up) (From Fluad (65yr+)(PF)) vaccine adjuvant emulsion Allergy Intermediate Anaphylaxis Verified 01/29/25 13:47 MF59C.1 (From Fluad (65yr+)(PF)) droperidol Allergy Unknown Hives Unverified 01/29/25 13:47 naproxen Allergy Unknown Hives Verified 01/29/25 13:47 penicillin G benzathine Allergy Unknown Hives Verified 01/29/25 13:47 shellfish derived (shellfish) Allergy Unknown Swelling Verified 01/29/25 13:47 sulfacetamide Allergy Unknown Hives Verified 01/29/25 13:47 tramadol Allergy Unknown Hives Verified 01/29/25 13:47 cephalexin (From Keflex) AdvReac Unknown Joint Pain Verified 01/29/25 13:47 ciprofloxacin AdvReac Unknown Chest Pain Unverified 01/29/25 13:47 furosemide AdvReac Unknown Unknown Unverified 01/29/25 13:47 hydralazine AdvReac Unknown Unknown Unverified 01/29/25 13:47 ibuprofen AdvReac Unknown Swelling Verified 01/29/25 13:47 loratadine AdvReac Unknown Unknown Unverified 01/29/25 13:47 Review of Systems Sugical H&P ROS: Negative: Constitution, Cardiovascular, Respiratory, Neurological, Psychiatric, Hem-Onc, Allergic/Immunologic, Gastrointestinal, Genitourinary, Musculoskeletal, Integumentary, Endocrine and Eyes/Ears/Nose/Throat Exam Surgical H&P Exam: Normal: HEENT, Normal: Heart, Normal: Lungs, Normal: Extremities, Normal: Abdomen, Normal: Skin and Normal: Neurological Plan Diagnosis/Plan: Unchanged I have reviewed the history and physical and performed a pertinent physical examination on my patient. No changes have occurred unless specified. Time Spent With Patient Time: Total time managing care of this patient today ____ minutes.
--- NOTE | 2025-02-04 10:10 | W.PM.OPN ---
Operative Note Operative Note Date of Service: 02/04/25 Narrative: Procedure performed: Bilateral L4 transforaminal epidural steroid injection Preop diagnosis: Lumbar radiculitis Postop diagnosis: The same Anesthesia: Mac After informed consent was obtained, patient was placed on the procedure table in a prone position. Skin over lumbosacral area was prepped and draped in usual sterile manner. Right L4 pedicle was visualized utilizing fluoroscopy. 5 inch 22 gauge spinal needle was introduced percutaneously and advanced towards the pedicle at about 6 o'clock position. Once level of neural foramina was reached, needle placement was verified utilizing 3 cc of Omnipaque contrast solution. Excellent flow through the neural foramina and epidural spread was identified without evidence of vascular uptake. Total volume of 6 cc containing 2 cc of 1% lidocaine, 40 mg of triamcinolone and normal saline solution were injected after negative aspiration for blood and cerebrospinal fluid. Identical procedure was repeated on the opposite side. Radiation exposure was documented in the chart.
[2025-02-04 10:28] VITALS: BP 108/71; PULSE 70; RESP 16; TEMP 36.9; O2SAT 96
[2025-02-04] MEDS: Lactated Ringers 1,000 ML 100 ML IVCONT (11:03)
[2025-02-04 11:35] VITALS: BP 109/64; PULSE 69; RESP 10; TEMP 36.5; O2SAT 93
[2025-02-04 11:50] VITALS: BP 153/76; PULSE 65; RESP 16; TEMP 36.1; O2SAT 94
== END 2025-02-04 12:17 | disposition home or self-care (01) ==
PROVIDERS: PCP Internal Medicine; Visit Provider Physical Medicine & Rehabilitation
PROC: (CPT 64483; principal; 2025-02-04 10:30)
DX: M54.16 Radiculopathy, lumbar region (principal); M48.062 Spinal stenosis, lumbar region with neurogenic claudication; M54.50 Low back pain, unspecified; M19.90 Unspecified osteoarthritis, unspecified site; M25.562 Pain in left knee; M25.561 Pain in right knee; I10 Essential (primary) hypertension; N28.9 Disorder of kidney and ureter, unspecified; J45.909 Unspecified asthma, uncomplicated; R00.9 Unspecified abnormalities of heart beat; Z99.89 Dependence on other enabling machines and devices; Z79.85 Long-term (current) use of injectable non-insulin antidiabetic drugs; Z79.51 Long term (current) use of inhaled steroids; Z79.899 Other long term (current) drug therapy; Z98.890 Other specified postprocedural states; Z88.0 Allergy status to penicillin; Z88.1 Allergy status to other antibiotic agents; Z88.6 Allergy status to analgesic agent; Z88.8 Allergy status to other drugs, medicaments and biological substances; Z88.7 Allergy status to serum and vaccine
CPT/HCPCS: 64483; J2003; J2250; J2704; J3010; J3301; Q9967

== ENCOUNTER → 2025-02-04 09:28 | Outpatient (BNV) | payer MEDICARE, SELFPAY | PROVIDERS: PCP Internal Medicine; Visit Provider Physical Medicine & Rehabilitation | DX: M54.16 Radiculopathy, lumbar region (principal) | CPT/HCPCS: 64483 ==